=== PATIENT | male | born 1995 | race Caucasian/White ===

== ENCOUNTER 2017-10-12 23:50 | Emergency (ER) | payer SELFPAY ==
[2017-10-13] MEDS ORDERED: PREDNISONE 20 MG TABLET PO ONE (01:06)
[2017-10-13] MEDS ORDERED: METRONIDAZOLE 500 MG TABLET PO ONE (01:06)
[2017-10-13] MEDS ORDERED: CIPROFLOXACIN HCL 500 MG TABLET PO ONE (01:06)
--- NOTE | 2017-10-13 01:09 | ER Document Report ---
ED General - General Chief Complaint: Abdominal Pain Stated Complaint: ABDOMINAL PAIN Time Seen by Provider: 10/13/17 00:30 Notes: Patient is a 22 year old male without past medical history who presents with 1 month of intermittent left-sided abdominal pain, intermittent rectal bleeding, loose stools, and 12 hours of intermittent discharge from his rectum. Patient reports that he has had similar symptoms over the past 6-7 years ever since he was 15 years of age. He states that when he was a child he was instructed to get a colonoscopy but refused the procedure due to concerns about the mechanism of a colonoscopy. He reports that he occasionally has "flares" in which she develops abdominal pain and loose stools as well as bloody stools that then resolve after a period of time. He has not seen a primary care doctor regarding today's concerns. Nothing improves or worsens his symptoms. He denies any fever or constitutional symptoms. He has not had any vomiting. His last episode of receptive anal intercourse was approximately 6-7 months ago. Past Medical History - General Information source: Patient - Social History Smoking Status: Never Smoker Frequency of alcohol use: None Drug Abuse: None Lives with: Friend Family History: Reviewed & Not Pertinent Review of Systems - Review of Systems Notes: Constitutional: Negative for fever. HENT: Negative for sore throat. Eyes: Negative for visual changes. Cardiovascular: Negative for chest pain. Respiratory: Negative for shortness of breath. Gastrointestinal: Positive for abdominal pain and rectal discharge Genitourinary: Negative for dysuria. Musculoskeletal: Negative for back pain. Skin: Negative for rash. Neurological: Negative for headaches, weakness or numbness. 10 point ROS negative except as marked above and in HPI. Physical Exam - Vital signs Vitals: Pulse Resp BP Pulse Ox 77 18 119/54 L 97 10/13/17 02:00 10/13/17 02:00 10/13/17 02:00 10/13/17 02:00 Interpretation: Normal Notes: PHYSICAL EXAMINATION: GENERAL: Well-appearing, well-nourished and in no acute distress. HEAD: Atraumatic, normocephalic. EYES: Pupils equal round and reactive to light, extraocular movements intact, sclera anicteric, conjunctiva are normal. ENT: nares patent, oropharynx clear without exudates. Moist mucous membranes. NECK: Normal range of motion, supple without lymphadenopathy LUNGS: Breath sounds clear to auscultation bilaterally and equal. No wheezes rales or rhonchi. HEART: Regular rate and rhythm without murmurs ABDOMEN: Soft, mild tenderness to the left side of the abdomen otherwise no localized tenderness, normoactive bowel sounds. No guarding, no rebound. No masses appreciated. EXTREMITIES: Normal range of motion, no pitting or edema. No cyanosis. NEUROLOGICAL: No focal neurological deficits. Moves all extremities spontaneously and on command. PSYCH: Normal mood, normal affect. SKIN: Warm, Dry, normal turgor, no rashes or lesions noted. Course - Re-evaluation Re-evalutation: 10/13/17 01:07 Patient presents with 1 month of left-sided abdominal pain in the left upper and left mid and lower quadrants concerning for possible colitis as he is presenting with concerns of rectal discharge. Patient is MSM but states that he has not had receptive sexual intercourse in over 5-6 months and does not have concerns for sexually transmitted infections. Moreover this to be an unusual time course for it. The patient has declined a rectal exam and swabbing of the purulent material that he reported from the rectum despite me informing him that this would be an essential part of fully evaluating his presentation today. I am concerned the patient may have an inflammatory bowel disease such as Crohn's or ulcerative colitis as he has had intermittent symptoms similar to this presentation past 6-7 years ever since he was 15 years of age but has never had a colonoscopy performed. Alternative consideration would be an infectious colitis. Patient's abdominal exam is overall quite benign without any rebound or guarding. I do not believe there is any indication for an acute CT of the abdomen pelvis. However I will empirically treat the patient with antibiotics as well as a short course of steroids. I have also instructed him that he needs to have a colonoscopy performed urgently as an outpatient to definitively diagnose the source of his recurrent episodes of abdominal pain, diarrhea, and rectal bleeding. 10/13/17 02:33 Labs have been reviewed and are overall unremarkable. Patient's repeat abdominal exam remains benign. He continues to decline a rectal examination. At this time will discharge with return precautions and follow-up recommendations. Verbal discharge instructions given a the bedside and opportunity for questions given. Medication warnings reviewed. Patient is in agreement with this plan and has verbalized understanding of return precautions and the need for primary care follow-up in the next 24-72 hours. - Vital Signs Vital signs: Temp Pulse Resp BP Pulse Ox 77 18 119/54 L 97 10/13/17 02:00 10/13/17 02:00 10/13/17 02:00 10/13/17 02:00 - Laboratory Result Diagrams: 10/13/17 01:10 10/13/17 01:10 Laboratory results interpreted by me: 10/13/17 10/13/17 01:10 01:10 WBC 12.2 H RBC 5.84 H Calcium 10.8 H ALT 101 H Discharge - Discharge Clinical Impression: Left sided abdominal pain, Rectal discharge Condition: Good Disposition: HOME, SELF-CARE Additional Instructions: Please take antibiotics and steroids as prescribed. As we discussed it is critical that you follow-up for a colonoscopy. Please return if you have worsening abdominal pain, fever greater than 100.4F, persistent vomiting, or any other symptoms that are worrisome to you. Prescriptions: Ciprofloxacin HCl [Cipro 500 mg Tablet] 500 mg PO BID #10 tablet Metronidazole [Flagyl 500 mg Tablet] 500 mg PO Q6H #20 tablet Prednisone [Deltasone 20 mg Tablet] 3 tab PO DAILY 5 Days tablet
[2017-10-13 01:38] LABS: ABSOLUTE BASOPHILS # (AUTO) 0.1 10^3/uL (0.0-0.2); ABSOLUTE EOSINOPHILS # (AUTO) 0.6 10^3/uL (0.0-0.6); ABSOLUTE LYMPHOCYTES (AUTO) 4.5 10^3/uL (0.5-4.7); ABSOLUTE MONOCYTES (AUTO) 0.9 10^3/uL (0.1-1.4); ABSOLUTE NEUT (AUTO) 6.2 10^3/uL (1.7-8.2); BASOPHILS % (AUTO) 0.5 % (0-2); HEMATOCRIT 49.5 % (37.9-51.0); LYMPHOCYTES % (AUTO) 36.4 % (13-45); MEAN CORPUSCULAR HEMOGLOBIN 29.1 pg (27.0-33.4); MEAN CORPUSCULAR HGB CONC 34.3 g/dL (32.0-36.0); MEAN CORPUSCULAR VOLUME 85 fl (80-97); MONOCYTES % (AUTO) 7.7 % (3-13); PLATELET COUNT 244 10^3/uL (150-450); RED BLOOD COUNT 5.84 10^6/uL (4.35-5.55); RED CELL DISTRIBUTION WIDTH 13.2 % (11.5-14.0); SEGMENTED NEUTROPHILS % (AUTO) 50.4 % (42-78); TOTAL CELLS COUNTED % (AUTO) 100 %; WHITE BLOOD COUNT 12.2 10^3/uL (4.0-10.5)
[2017-10-13 01:49] LABS: ALANINE AMINOTRANSFERASE 101 U/L (21-72); ALBUMIN 4.9 g/dL (3.5-5.0); ALKALINE PHOSPHATASE 90 U/L (38-126); ANION GAP 13 (5-19); ASPARTATE AMINO TRANSFERASE 57 U/L (17-59); BILIRUBIN,DIRECT 0.3 mg/dL (0.0-0.4); BILIRUBIN,TOTAL 0.4 mg/dL (0.2-1.3); BLOOD UREA NITROGEN 14 mg/dL (7-20); CALCIUM 10.8 mg/dL (8.4-10.2); CARBON DIOXIDE 25 mmol/L (22-30); CHLORIDE 106 mmol/L (98-107); GLUCOSE 96 mg/dL (75-110); POTASSIUM 4.3 mmol/L (3.6-5.0); SODIUM 144.4 mmol/L (137-145); TOTAL PROTEIN 7.7 g/dL (6.3-8.2)
[2017-10-13 03:56] VITALS: BP 119/54
== END 2017-10-13 02:50 | disposition home or self-care (01) ==
LOC: ER 23:50
DX: R10.12 Left upper quadrant pain (principal); R10.32 Left lower quadrant pain; R19.8 Other specified symptoms and signs involving the digestive system and abdomen; K62.5 Hemorrhage of anus and rectum; R19.7 Diarrhea, unspecified
CPT/HCPCS: 99284; 36415; 85025; 80053; J7512